=== PATIENT | female | born 1995 | race American Indian/Alaskan Native ===

== ENCOUNTER 2016-02-17 13:38 | Emergency (ER) | payer OTHER ==
--- NOTE | 2016-02-17 14:25 | Emergency Department Report ---
HPI - General Chief Complaint: Dizziness Time Seen by Provider: 02/17/16 14:11 - HPI HPI: Room 6 The patient is a 20-year-old female presenting with a chief complaint of syncope. The patient appears weak and listless and is unable to provide a history. The patient's significant other is at bedside and states that he received a call from a plasma donation center stating that the patient went unresponsive while donating plasma. The patient is speaking in a low whisper and is unable to convey information. Significant other asked patient if she has chest pain headache shortness of breath and feels cold which she acknowledges. Location: [see above] Duration: [see above] Quality: [see above] Severity: Moderate Modifying factors: [see above] Context: [see above] Mode of transportation: [not driving] ED Past Medical Hx - Past Medical History Previous Medical History?: No - Surgical History Past Surgical History?: No - Family History Family history: no significant - Social History Smoking Status: Never Smoker Substance Use Type: None ED Review of Systems ROS: Stated complaint: LOW BP Other details as noted in HPI Comment: Unobtainable due to pts medical conditions Constitutional: malaise Physical Exam - Physical Exam Vital Signs: Vital Signs 02/17/16 13:49 Temperature 97.5 F L Pulse Rate 79 Blood Pressure 129/91 O2 Sat by Pulse 100 Oximetry Physical Exam: GENERAL: The patient is well-developed well-nourished female lying on stretcher appearing listless. [] HEENT: Normocephalic. Atraumatic. Extraocular motions are intact. Patient has moist mucous membranes. NECK: Supple. Trachea midline CHEST/LUNGS: Clear to auscultation. There is no respiratory distress noted. HEART/CARDIOVASCULAR: Regular. There is no tachycardia. There is no gallop rub or murmur. ABDOMEN: Abdomen is soft, nontender. Patient has normal bowel sounds. There is no abdominal distention. SKIN: There is no rash. There is no edema. There is no diaphoresis. NEURO: The patient is awake, but appears lethargic. The patient is cooperative. MUSCULOSKELETAL: There is no evidence of acute injury. ED Course Vital Signs 02/17/16 13:49 Temperature 97.5 F L Pulse Rate 79 Blood Pressure 129/91 O2 Sat by Pulse 100 Oximetry - Reevaluation(s) Reevaluation #1: 02/17/16 16:24 Patient improved. Patient taken to the bathroom and [facility] return. Patient no longer appears lethargic. Will continue to give IV fluids Reevaluation #2: 02/17/16 18:40 Patient in no acute distress, playing with cell phone ED Medical Decision Making - Lab Data Result diagrams: 02/17/16 14:34 02/17/16 14:34 Laboratory Tests 02/17/16 02/17/16 02/17/16 14:30 14:34 14:34 WBC 10.4 RBC 5.64 H Hgb 16.3 H Hct 49.5 H MCV 88 MCH 29 MCHC 33 RDW 13.3 Plt Count 261 Lymph % (Auto) 19.6 [place] % (Auto) 4.1 Eos % (Auto) 0.5 Baso % (Auto) 0.1 Lymph # 2.0 [place] # 0.4 Eos # 0.1 Baso # 0.0 Seg Neutrophils % 75.7 H Seg Neutrophils # 7.9 H PT 13.2 INR 1.01 APTT 24.5 D-Dimer Sodium Potassium Chloride Carbon Dioxide Anion Gap BUN Creatinine Estimated GFR BUN/Creatinine Ratio Glucose POC Glucose 75 Calcium Total Bilirubin AST ALT Alkaline Phosphatase Total Creatine Kinase CK-MB (CK-2) CK-MB (CK-2) Rel Index Troponin T NT-Pro-B Natriuret Pep Total Protein Albumin Albumin/Globulin Ratio HCG, Qual 02/17/16 02/17/16 02/17/16 14:34 14:34 14:34 WBC RBC Hgb Hct MCV MCH MCHC RDW Plt Count Lymph % (Auto) [place] % (Auto) Eos % (Auto) Baso % (Auto) Lymph # [place] # Eos # Baso # Seg Neutrophils % Seg Neutrophils # PT INR APTT D-Dimer 180.0 Sodium 134 L Potassium 5.4 H Chloride 100.3 Carbon Dioxide 18 L Anion Gap 21 BUN 13 Creatinine 0.7 Estimated GFR > 60 BUN/Creatinine Ratio 18.57 Glucose 94 POC Glucose Calcium 8.9 Total Bilirubin 0.8 AST 24 ALT 12 Alkaline Phosphatase 61 Total Creatine Kinase 73 CK-MB (CK-2) < 1.0 CK-MB (CK-2) Rel Index 1.3 Troponin T < 0.010 NT-Pro-B Natriuret Pep < 5 Total Protein 6.5 Albumin 3.5 L Albumin/Globulin Ratio 1.2 HCG, Qual Negative Slight hemolysis seen on chemistries per lab - EKG Data -: EKG Interpreted by Me EKG shows normal: sinus rhythm Rate: normal - EKG Data When compared to previous EKG there are: previous EKG unavailable 02/17/16 16:24 No ischemic changes seen - Radiology Data Radiology results: report reviewed (CT head), image reviewed (CT head) CT head (read by radiologist)-cranial CT scan within normal limits. - Differential Diagnosis symptomatic anemia, vasovagal syncope, malingering Critical care attestation.: If time is entered above; I have spent that time in minutes in the direct care of this critically ill patient, excluding procedure time. ED Disposition Clinical Impression: Dehydration, Vasovagal syncope Disposition: DISCHARGED TO HOME OR SELFCARE Is pt being admited?: No Does the pt Need Aspirin: No Condition: Stable Instructions: Syncope (ED) Additional Instructions: Return to the emergency department immediately should you develop worsening symptoms, fever, inability to tolerate food or liquid or any other concerns. Referrals: PRIMARY CARE, [Primary Care Provider] - 3-5 Days Time of Disposition: 18:59
[2016-02-17 14:49] VITALS: BP 114/78
[2016-02-17 14:52] LABS: Basophils % (Auto) 0.1 % (0.0-1.8); Eosinophils % (Auto) 0.5 % (0.0-4.3); Hematocrit 49.5 % (30.3-42.9); Hemoglobin 16.3 gm/dl (10.1-14.3); Mean Corpuscular HGB Conc 33 % (30-34); Mean Corpuscular Hemoglobin 29 pg (28-32); Mean Corpuscular Volume 88 fl (79-97); Platelet Count 261 K/mm3 (140-440); Red Blood Count 5.64 M/mm3 (3.65-5.03); Red Cell Distribution Width 13.3 % (13.2-15.2); White Blood Count 10.4 K/mm3 (4.5-11.0)
[2016-02-17 15:02] LABS: INR 1.01 (0.87-1.13)
[2016-02-17 15:03] LABS: Partial Thromboplastin Time 24.5 Sec. (24.2-36.6)
[2016-02-17] MEDS ORDERED: NACL 0.9% 1000 ML 1,000 ML IV ONE ×2 (15:15→17:19)
[2016-02-17 15:27] LABS: Alanine Aminotransferase 12 units/L (7-56); Albumin 3.5 g/dL (3.9-5); Albumin/Globulin Ratio 1.2 %; Alkaline Phosphatase 61 units/L (35-129); Anion Gap 21 mmol/L; BUN/Creatinine Ratio 18.57; Bilirubin,Total 0.8 mg/dL (0.1-1.2); Blood Urea Nitrogen 13 mg/dL (7-17); Calcium 8.9 mg/dL (8.4-10.2); Carbon Dioxide 18 mmol/L (22-30); Chloride 100.3 mmol/L (98-107); Creatine Kinase 73 units/L (30-135); Creatine Kinase MB < 1.0 ng/mL (0.0-4.0); Glucose 94 mg/dL (65-100); Potassium 5.4 mmol/L (3.6-5.0); Sodium 134 mmol/L (137-145); Total Protein 6.5 g/dL (6.3-8.2)
--- NOTE | 2016-02-17 15:49 | Cat Scan Report ---
CRANIAL CT SCAN: Serial contiguous axial images were obtained through the cranium. Intravenous contrast material was not administered. The ventricles are normal in size and appearance. There is no mass effect or midline shift. No areas of abnormally increased or decreased attenuation are seen. No mass lesion is seen. The mastoid air cells and visualized portions of the sinuses are normal. IMPRESSION: Cranial CT scan within normal limits.
== END 2016-02-17 19:25 | disposition home or self-care (01) ==
LOC: ED 13:38
DX: E86.0 Dehydration (principal); R55 Syncope and collapse
CPT/HCPCS: 36415; 70450; 80053; 82550; 82553; 82962; 83880; 84484; 84703; 85025; 85379; 85610; 85730; 86850; 86900; 86901; 93005; 93010; 96360; 96361; 99284; J7030